=== PATIENT | male | born 1950 | race Caucasian/White ===

== ENCOUNTER 2021-03-04 12:16 | Outpatient (CLI) | payer MEDICARE, BC | END 2021-03-04 12:17 | disposition home or self-care (01) | LOC: LABBT 12:16 | PROVIDERS: ATTEND Surgery | DX: Z01.818 Encounter for other preprocedural examination (principal); M50.10 Cervical disc disorder with radiculopathy, unspecified cervical region; M48.02 Spinal stenosis, cervical region | CPT/HCPCS: 93005; 93010 ==

== ENCOUNTER 2021-03-08 05:50 | Inpatient (IN) | payer MEDICARE, BC ==
[2021-03-02 15:56] VITALS: BMI 31.3
[2021-03-04 13:32] LABS: Hemoglobin 15.9 g/dL (13.5-17.5); Mean Corpuscular HGB CONC 34.6 g/dL (32.0-36.0); Mean Corpuscular Hemoglobin 31.9 pg (27.0-33.0); Mean Corpuscular Volume 92.4 fl (81.2-95.1); Mean Platelet Volume 10.3 fl (7.4-10.4); Platelet Count 245 10x3/uL (150-450); RBC Distribution Width 12.3 % (11.5-14.5); Red Blood Cell (RBC) Count 4.98 10x6/uL (4.32-5.72); White Blood Cell (WBC) Count 10.5 10x3/uL (3.5-10.5)
[2021-03-04 13:44] LABS: Anion Gap 15 mmol/L (10-20); BUN (Urea Nitrogen) 24 mg/dL (8.4-25.7); Calc. Creatinine Clearance 0 mL/min (70-130); Calcium 9.8 mg/dL (7.8-10.44); Carbon Dioxide 24 mmol/L (23-31); Chloride 107 mmol/L (98-107); Glucose 95 mg/dL (83-110); PTT 26.2 sec (22.0-33.0); Sodium 142 mmol/L (136-145)
[2021-03-04 23:21] LABS: SARS-CoV-2 PCR by NAA Not Detected (NotDetected)
[2021-03-08] MEDS ORDERED: cefOXitin Sodium/Dextrose 2 GM/50 ML BAG ONE (06:05)
[2021-03-08] MEDS ORDERED: SUGAMMADEX SODIUM 200 MG/2 ML VIAL ONE (06:29)
[2021-03-08] MEDS ORDERED: Fentanyl 100 MCG/2 ML VIAL ONE ×2 (06:41→11:21)
[2021-03-08] MEDS ORDERED: Ondansetron PF 4 MG/2 ML Vial ONE (07:46)
[2021-03-08] MEDS ORDERED: ePHEDrine 50 MG/ML VIAL ONE (07:46)
[2021-03-08] MEDS ORDERED: PROPOFOL 200 MG/20 ML VIAL ONE (07:46)
[2021-03-08] MEDS ORDERED: Lidocaine 1% PF 5 ML VIAL ONE (07:46)
[2021-03-08] MEDS ORDERED: diphenhydrAMINE 50 MG/ML VIAL ONE (07:46)
[2021-03-08] MEDS ORDERED: Dexamethasone 20 MG/5 ML VIAL ONE (07:46)
[2021-03-08] MEDS ORDERED: Rocuronium Bromide 10 MG/ML (10ML VIAL) ONE (07:46)
[2021-03-08] MEDS ORDERED: HYDROmorphone 2 MG/ML VIAL ONE (08:22)
[2021-03-08] MEDS ORDERED: Acetaminophen 325 MG TAB PO PRN (10:08)
[2021-03-08] MEDS ORDERED: traMADol HCl 50 MG TAB PO PRN (10:08)
[2021-03-08] MEDS ORDERED: GenTeal Tears Severe Dry Eye GEL 10 G EA EYE PRN (10:15)
[2021-03-08] MEDS ORDERED: hydrALAZINE 20 MG/ML VIAL SLOW IVP PRN (10:17)
[2021-03-08] MEDS ORDERED: tiZANidine HCl 4 MG TAB ONE (11:07)
[2021-03-08] MEDS ORDERED: Morphine 4 MG/ML VIAL SLOW IVP PRN (16:00)
[2021-03-08] MEDS: Sodium Chloride 0.9% 1,000 ML IV SCH ×2 (16:09→23:42)
[2021-03-08] MEDS: CEFAZOLIN 2 GM, Admixture Fee 1 EACH in Sodium Chloride 0.9% 100 ML IVPB SCH (17:01)
[2021-03-08] MEDS: HYDROcodone/Acetaminophen 7.5/325 mg Tablet PO PRN (17:05)
[2021-03-08] MEDS ORDERED: Docusate Sodium 100 MG/10 ML UDCUP PO PRN (18:18)
[2021-03-08] MEDS: Montelukast Sodium 10 mg Tablet PO SCH (19:56)
[2021-03-08] MEDS: tiZANidine HCl 4 MG TAB PO PRN (19:57)
[2021-03-08] MEDS: Lisinopril 10 MG TAB PO SCH (19:57)
[2021-03-08] MEDS: Atorvastatin Calcium 10 MG TAB PO SCH (19:57)
[2021-03-08] MEDS ORDERED: HYPROMELLOSE PO SCH (21:00)
[2021-03-08] MEDS: Calcium Polycarbophil 625 MG TAB PO SCH (21:02)
[2021-03-08] MEDS: Zolpidem Tartrate 5 MG TAB PO SCH (22:07)
[2021-03-09] MEDS: CEFAZOLIN 2 GM, Admixture Fee 1 EACH in Sodium Chloride 0.9% 100 ML IVPB SCH ×3 (00:42→15:16)
[2021-03-09] MEDS: HYDROcodone/Acetaminophen 7.5/325 mg Tablet PO PRN ×4 (02:08→22:58)
[2021-03-09] MEDS: Acetaminophen/Codeine 30-300mg Tablet PO PRN (04:51)
[2021-03-09] MEDS: Hydrochlorothiazide 25 MG TAB PO SCH (08:35)
[2021-03-09] MEDS: Calcium Polycarbophil 625 MG TAB PO SCH ×2 (08:35→20:17)
[2021-03-09] MEDS: Amlodipine 10 MG TAB PO SCH (08:35)
[2021-03-09] MEDS ORDERED: Vortioxetine Hydrobromide [Trintellix] 20 MG Tablet PO SCH (09:00)
[2021-03-09] MEDS: Sodium Chloride 0.9% 1,000 ML IV SCH (09:43)
[2021-03-09] MEDS: tiZANidine HCl 4 MG TAB PO PRN ×2 (11:02→20:17)
[2021-03-09] MEDS: Lisinopril 10 MG TAB PO SCH (20:17)
[2021-03-09] MEDS: Montelukast Sodium 10 mg Tablet PO SCH (20:17)
[2021-03-09] MEDS: Atorvastatin Calcium 10 MG TAB PO SCH (20:18)
[2021-03-09] MEDS: Zolpidem Tartrate 5 MG TAB PO SCH (23:56)
[2021-03-10] MEDS: CEFAZOLIN 2 GM, Admixture Fee 1 EACH in Sodium Chloride 0.9% 100 ML IVPB SCH ×4 (00:01→00:20)
[2021-03-10] MEDS: Acetaminophen/Codeine 30-300mg Tablet PO PRN (04:03)
[2021-03-10] MEDS: HYDROcodone/Acetaminophen 7.5/325 mg Tablet PO PRN (07:14)
[2021-03-10 07:59] VITALS: TEMP 97.8
[2021-03-10] MEDS ORDERED: ceFAZolin Sodium/D5W 2 GM in Premix Bag 1 BAG IVPB SCH (08:00)
[2021-03-10 08:43] VITALS: BP 145/89
[2021-03-10] MEDS: Hydrochlorothiazide 25 MG TAB PO SCH (08:44)
[2021-03-10] MEDS: Calcium Polycarbophil 625 MG TAB PO SCH (08:44)
[2021-03-10] MEDS: tiZANidine HCl 4 MG TAB PO PRN (08:44)
[2021-03-10] MEDS: Amlodipine 10 MG TAB PO SCH (08:44)
== END 2021-03-10 09:33 | disposition home or self-care (01) | DRG 473 ==
LOC: SDC 05:50 → T4-B 10:08 → OBSVTOIN 03-09 13:48
PROVIDERS: ADMIT Surgery; ATTEND Surgery
PROC: 0RG20A0 Fusion of 2 or more Cervical Vertebral Joints with Interbody Fusion Device, Anterior Approach, Anterior Column, Open Approach (ICD-10-PCS; principal; 2021-03-08)
PROC: 0RB30ZZ Excision of Cervical Vertebral Disc, Open Approach (ICD-10-PCS; 2021-03-08)
PROC: 01N10ZZ Release Cervical Nerve, Open Approach (ICD-10-PCS; 2021-03-08)
PROC: 00NW0ZZ Release Cervical Spinal Cord, Open Approach (ICD-10-PCS; 2021-03-08)
DX: M48.02 Spinal stenosis, cervical region (principal); M50.11 Cervical disc disorder with radiculopathy, high cervical region; Z20.822 Contact with and (suspected) exposure to COVID-19; I10 Essential (primary) hypertension; E78.5 Hyperlipidemia, unspecified; J30.2 Other seasonal allergic rhinitis; M19.90 Unspecified osteoarthritis, unspecified site; M54.16 Radiculopathy, lumbar region; F41.9 Anxiety disorder, unspecified; Z87.891 Personal history of nicotine dependence; Z98.41 Cataract extraction status, right eye; Z98.42 Cataract extraction status, left eye
CPT/HCPCS: 76000; 80048; 85027; 85610; 85730; 86850; 86900; 86901; 96365; 96376; C1713; C1768; C1776; G0378; J0690; J0694; J1100; J1170; J1200; J2405; J2704; J3010; J3490; U0003; U0005